=== PATIENT | female | born 1940 | race Caucasian/White ===

== ENCOUNTER 2018-04-08 13:06 | Emergency (ER) | payer OTHER ==
[~2018-04-08] VITALS: Ht 160 cm; Wt 68.9 kg
[2018-04-08] MEDS ORDERED: NORVASC2.5 M1 (13:35)
[2018-04-08] MEDS ORDERED: TOPROL XL25 M1 (13:35)
== END 2018-04-08 16:08 | disposition home or self-care (01) ==
LOC: ER 13:06
DX: S51.022A Laceration with foreign body of left elbow, initial encounter (principal); W18.09XA Striking against other object with subsequent fall, initial encounter; Y93.89 Activity, other specified; Y92.098 Other place in other non-institutional residence as the place of occurrence of the external cause; Y99.8 Other external cause status

== ENCOUNTER 2018-04-19 16:25 | Emergency (ER) | payer OTHER ==
[~2018-04-19] VITALS: Ht 162.6 cm; Wt 74.8 kg
[~2018-04-19 16:25] MED LIST: NORVASC2.5 M1; TOPROL XL25 M1
== END 2018-04-19 19:01 | disposition home or self-care (01) ==
LOC: ER 16:25
DX: Z48.02 Encounter for removal of sutures (principal)